=== PATIENT | male | born 1960 | race Caucasian/White ===

== ENCOUNTER 2017-09-25 21:12 | Emergency (ER) | payer OTHER ==
[~2017-09-25] VITALS: Ht 162.6 cm; Wt 66.0 kg
[2017-09-25 21:14] VITALS: BP 142/92; PULSE 82; RESP 16; TEMP 98.2; O2SAT 98
--- NOTE | 2017-09-25 23:52 | PD ---
HPI Chief Complaint: Eye Problems/Injury Time Seen by Provider: 23:51 Travel History International Travel<30 days: No Contact w/Intl Traveler<30days: No Traveled to known affect area: No History of Present Illness HPI 57-year-old male came to the emergency room with history of right eye irritation , foreign body sensation, redness after he wore his contacts this morning. Patient took his contact soft but the irritation continued throughout the day and he's been constant tearing. He says his eye hurts too. Patient also has history of closed angle glaucoma and has had a thyroidectomy done in the past for both eyes. No history of any vision changes. Vital signs otherwise stable. Patient has history of diabetes. [facility] Past Medical History Narrative Medical List of his past medical, surgical, social and family history is reviewed from the nursing note. Diabetes: Yes (PRE) Patient Takes Glucophage: No Thyroid Disease: Yes Tetanus Vaccination: < 5 Years Influenza Vaccination: No Past Surgical History Other Surgery: Yes (Cosmetic lipo ) Social History Alcohol Use: No Tobacco Use: No Substance Use: No Allergies-Medications (Allergen,Severity, Reaction): Coded Allergies: No Known Drug Intolerances (Verified Allergy, Unknown, 09/25/17) Comments No known drug allergies. Reported Meds & Prescriptions Reported Meds & Active Scripts Active Vigamox Opth Drops (Moxifloxacin Opth Drops) 0.5 % Soln 1 Drop RIGHT EYE TID Reported Zyrtec (Cetirizine HCl) 10 Mg Capsule 10 Mg Narrative Medication List of his home medications reviewed from the nursing note. Review of Systems Except as stated in HPI: all other systems reviewed are Neg Eyes: Positive: Foreign Body Sensation Physical Exam Narrative GENERAL: Awake, alert, moderate distress SKIN: Focused skin assessment warm/dry. HEAD: Atraumatic. Normocephalic. EYES: Pupils equal and round. No scleral icterus. No injection or drainage. Right eye is scleral injection, small iridectomy defect noticed at 11 o'clock position. Floor seen stain reveals a punctate corneal abrasion in the right cornea midcentral at 2 o'clock position. ENT: No nasal bleeding or discharge. Mucous membranes pink and moist. NECK: Trachea midline. No JVD. CARDIOVASCULAR: Regular rate and rhythm. No murmur appreciated. RESPIRATORY: No accessory muscle use. Clear to auscultation. Breath sounds equal bilaterally. GASTROINTESTINAL: Abdomen soft, non-tender, nondistended. Hepatic and splenic margins not palpable. MUSCULOSKELETAL: No obvious deformities. No clubbing. No cyanosis. No edema. NEUROLOGICAL: Awake and alert. No obvious cranial nerve deficits. Motor grossly within normal limits. Normal speech. PSYCHIATRIC: Appropriate mood and affect; insight and judgment normal. Data Data Last Documented VS Vital Signs Date Time Temp Pulse Resp B/P (MAP) Pulse Ox O2 Delivery O2 Flow Rate FiO2 09/26/17 00:58 09/25/17 21:14 98.2 82 16 98 Room Air Orders Orders Tetracaine 0.5% Opth Soln (Tetracaine 0. (09/26/17 00:00) Moxifloxacin 0.5% Opht Soln (Vigamox 0.5 (09/26/17 00:30) Ed Discharge Order (09/26/17 00:26) [facility] Medical Decision Making Medical Screen Exam Complete: Yes Emergency Medical Condition: Yes Medical Record Reviewed: Yes Differential Diagnosis Corneal abrasion, corneal edema, iritis, glaucoma Narrative Course 12:20 AM I did a floor seen stain into his eye. Please refer to my procedure note. Patient tolerated the procedure well. Based on the findings I have ordered moxifloxacin eyedrop. My nurse practitioner's doing the Luis-Pen exam currently to check eye pressure. If the pressure is within normal limit patient will be discharged home. He had been recommended to follow-up with the supervisor buffing and pasting. Patient says he has his own supervisor buffing and pasting. The on-call supervisor buffing and pasting name will be given to him in case he for some reason cannot follow up with his own. 12:22 AM I pressure was between 17 and 18. Procedures Procedure Narrative 12:23 AM floor seen stain of the eye: 2 drops of 0.5% proparacaine was instilled into the right eye. Floor seen strip was introduced into the lower lid. With lamp was used to check for uptake. Patient was noticed to have a punctate mid central corneal abrasion at 2 o'clock position. Patient tolerated the procedure well. EKG Prior to Arrival: No Diagnosis Primary Impression: Corneal abrasion Qualified Codes: S05.01XA - Injury of conjunctiva and corneal abrasion without foreign body, right eye, initial encounter Referrals: Ashley Davis MD 1 day Additional Instructions: Take the medication as per the prescription direction. Please follow-up with the supervisor buffing and pasting in the morning. Return to ER if condition worsens or any other new concerns. Do not wear contact lens until the symptoms have completely resolved and supervisor buffing and pasting has cleared you. Med/Other Pt SpecificInfo: Prescription(s) given Scripts Moxifloxacin Opth Drops (Vigamox Opth Drops) 0.5 % Soln 1 DROP RIGHT EYE TID for Infection, #1 BOTTLE 0 Refills Prov: Dmitriy Packer MD 09/26/17 Disposition: 01 DISCHARGE HOME Condition: Stable Dmitriy Packer MD Sep 25, 2017 23:52
[2017-09-25] MEDS ORDERED: CETI10CA3 (23:53)
[2017-09-26] MEDS ORDERED: TETRACAINE 0.5% OPTH SOLN 4 ML BTL RIGHT EYE ONE
[2017-09-26] MEDS ORDERED: VIGA0.5D RIGHT EYE (00:23)
[2017-09-26] MEDS ORDERED: MOXIFLOXACIN 0.5% OPHT SOLN 3 ML BTL RIGHT EYE ONE (00:30)
== END 2017-09-26 00:58 | disposition home or self-care (01) ==
LOC: NEPD 21:12
DX: S05.01XA Injury of conjunctiva and corneal abrasion without foreign body, right eye, initial encounter (principal); X58.XXXA Exposure to other specified factors, initial encounter
CPT/HCPCS: 99283